=== PATIENT | female | born 1985 | race Asian ===

== ENCOUNTER 2019-10-14 07:48 | Day surgery (SDC) | payer MEDICAID ==
[2019-10-07 10:44] LABS: BASOPHILS % (AUTO) 0.3 % (0-1); EOSINOPHILS # (AUTO) 0.2 X10'3 (0-0.9); EOSINOPHILS % (AUTO) 3.3 % (0-6); LYMPHOCYTES % (AUTO) 30.4 % (21-51); MEAN CORPUSCULAR HEMOGLOBIN 29.4 PG (27.0-31.0); MEAN CORPUSCULAR HGB CONC 33.3 g/dL (33.0-36.5); MEAN CORPUSCULAR VOLUME 88.3 FL (78-98); MONOCYTES # (AUTO) 0.3 X10'3 (0-0.9); PRE OP HEMATOCRIT 38.9 % (35.0-45.0); PRE OP PLATELET COUNT 217 X10'3 (140-440); RED CELL DISTRIBUTION WIDTH 13.9 % (11.5-14.5)
[2019-10-07 10:57] LABS: ALBUMIN 3.9 G/DL (3.4-5.0); ALBUMIN/GLOBULIN RATIO 0.9 (1.1-1.5); ALKALINE PHOSPHATASE 77 IU/L (46-116); BLOOD UREA NITROGEN 13 MG/DL (7-18); BUN/CREATININE RATIO 13.5 (6.6-38.0); CALCIUM 9.2 MG/DL (8.5-10.1); CHLORIDE 105 MMOL/L (99-107); CREATININE 0.96 MG/DL (0.40-0.90); PRE OP ALT 46 U/L (30-65); PRE OP ANION GAP 9 (8-16); PRE OP AST 22 U/L (10-37); PRE OP BILIRUB, TOTAL 0.4 MG/DL (0.0-1.0); PRE OP GLUCOSE 96 MG/DL (70-104); PRE OP POTASSIUM 3.9 MMOL/L (3.4-5.1); PRE OP SODIUM 139 MMOL/L (135-145); TOTAL CARBON DIOXIDE 25.3 MMOL/L (24-32); TOTAL PROTEIN 8.3 G/DL (6.4-8.2); eGFR 67 ML/MIN
[2019-10-07 11:18] LABS: PREOP HCG, QL SERUM NEGATIVE (NEGATIVE)
[2019-10-14] VITALS (10 sets, daily range): BP systolic 105–124; BP diastolic 73–83
[~2019-10-14] VITALS: Ht 154.9 cm; Wt 61.2 kg
[~2019-10-14 07:48] MED LIST: NO HOME MEDS PO; famotidine 20mg tablet PO ONE; ringers solution, lacted 1,000 ML IV SCH
[2019-10-14] MEDS ORDERED: BUPIVAcaine/PF 2.5 mg/ml (0.25%) 30ml vial ONE (09:35)
[2019-10-14] MEDS ORDERED: sevoflurane 250ml liquid IH ONE (10:12)
[2019-10-14] MEDS ORDERED: propofol inj 20 ML IV ONE (10:14)
[2019-10-14] MEDS ORDERED: fentaNYL/PF 50MCG/1 ML 2ML syringe ONE (10:14)
[2019-10-14] MEDS ORDERED: midazolam 2 mg/2 ml injection ONE (10:14)
[2019-10-14] MEDS ORDERED: rocuronium 10mg/ml inj IV ONE (10:29)
[2019-10-14] MEDS ORDERED: dexamethasone sod phosphate 4mg/ml inj. ONE (10:29)
[2019-10-14] MEDS ORDERED: ondansetron/PF 4mg/2ml inj ONE (10:29)
[2019-10-14] MEDS ORDERED: ringers solution, lacted 1,000 ML IV SCH (10:36)
[2019-10-14] MEDS ORDERED: morphine 4 MG/ML inj SYRINge IV PRN (10:40)
[2019-10-14] MEDS ORDERED: meperidine/PF 25mg/ml syringe IV PRN ×3 (10:40)
[2019-10-14] MEDS ORDERED: ondansetron/PF 4mg/2ml inj IV PRN (10:40)
[2019-10-14] MEDS ORDERED: morphine 2 MG/ML inj. syringe IV PRN (10:40)
[2019-10-14] MEDS ORDERED: proCHLORperazine 10 MG/2 ml inj IV PRN (10:40)
[2019-10-14] MEDS ORDERED: neostigmine methylsulfate 1 MG/ML 10ml vial ONE (10:41)
[2019-10-14] MEDS ORDERED: glycopyrrolate 0.2mg/ml inj ONE (10:41)
[2019-10-14] MEDS ORDERED: oxyCODONE/APAP 5-325mg tablet PO ONE (11:10)
--- NOTE | 2019-10-14 11:10 | NUR ---
Received from OR via [facility], accompanied by Anesthesiologist DR ROMO and report given by Anesthesiologist. PT DROWSY, DENIES PAIN, ABDOMEN W/3 LAP SITES W/DERMABOND CDI, POWER PAD IN PLACE. Addendum: 10/14/19 at 1140 by Marisol Carrillo RN Amended: Links added.
[2019-10-14] MEDS ORDERED: ketorolac trometh. 30mg/ml inj. IV ONE (11:50)
--- NOTE | 2019-10-14 12:50 | NUR ---
D/C INSTRUCTIONS GIVEN AND GONE OVER W/PT WHO VERBALIZED UNDERSTANDING, PT D/CD TO HOME VIA W/C TO PRIVATE VEHICLE W/O INCIDENT. Addendum: 10/14/19 at 1351 by Marisol Carrillo RN Amended: Links added.
== END 2019-10-14 12:50 | disposition home or self-care (01) ==
LOC: PAS 07:48
PROVIDERS: ATTEND Obstetrics & Gynecology
DX: Z30.2 Encounter for sterilization (principal); Z11.59 Encounter for screening for other viral diseases; Z79.899 Other long term (current) drug therapy; Z83.3 Family history of diabetes mellitus; Z82.3 Family history of stroke
CPT/HCPCS: 36415; 58661; 80053; 82948; 84703; 85025; 86885; 86900; 86901; J1100; J1885; J2250; J2405; J2704; J2710; J3010; J3490; U0003; A4618; A6250; J7120

== ENCOUNTER 2025-01-12 08:11 | Emergency (ER) | payer MEDICAID ==
[~2025-01-12] VITALS: Ht 152.4 cm; Wt 58.2 kg
[~2025-01-12 08:11] MED LIST changes: -famotidine 20mg tablet PO ONE; -ringers solution, lacted 1,000 ML IV SCH
[2025-01-12 08:25] VITALS: TEMP 97.6
--- NOTE | 2025-01-12 09:16 | Physician Documentation ---
History of Present Illness General Chief Complaint: Flu Symptoms Stated Complaint: BODY ACHES FEVER Time Seen by MD: 08:52 OK to notify your PCP?: No Primary Medical Doctor: [facility] Source: patient, RN notes reviewed Mode of Arrival: POV Exam Limitations: no limitations History of Present Illness Initial Comments 39-year-old female presents with complaints of body aches, subjective fever, chills, frontal/bilateral temporal headache, and some left flank pain. Flank pain began approximately 1500 yesterday, but remainder of symptoms began around midnight. She denies any urinary symptoms, cough, or sore throat. She denies treatment prior to arrival. Medication Reconciliation Allergies: Coded Allergies: No Known Allergies (Unverified , 01/12/25) Scheduled Cefpodoxime Proxetil (Vantin), 1 TAB PO Q12H Home Med List (No Home Medications), 1 TAB PO DAILY, (Reported) Past Medical History Past Medical History: No Pertinent History Past Surgical History: appendectomy, hysterectomy Drug Use: none Lives In: Home Review of Systems All Other Systems at this time: Reviewed and Negative ROS body aches as well as other positive symptoms as stated above in the HPI, otherwise all systems are reviewed and negative. Physical Exam Physical Exam Vital Signs: RN Vital Signs have been reviewed: Yes, Temperature: 97.6, Source: Temporal, Heart Rate: 108, Respiratory Rate: 18, BP: 114/75, Pulse Oximetry: 98, Weight: 58.200 Pulse Oximetry Reflects: adequate oxygenation Physical Exam VITALS: Reviewed and as above. GENERAL: Alert, no apparent distress. HEENT: Normocephalic, atraumatic, PERRL, EOMI, dry mucosa RESPIRATORY: Lungs clear, normal breath sounds, no respiratory distress. CHEST: No accessory muscle use, no retractions CV: Regular rate, rhythm, no edema, no murmur, No: JVD GI: Soft, non-tender, bowels sounds present, no rebound, guarding, or rigidity MUSCULOSKELETAL No deformities, no edema SKIN: Warm and dry, no rash NEURO: Oriented x4, No motor or sensory deficit PSYCH: Normal mood and affect, no agitation Progress Results/Orders Reviewed/noted all lab results: Yes Results/Orders Vital Signs 01/12/25 08:25 Temp 97.6 Pulse 108 Resp 18 B/P (MAP) 114/75 Pulse Ox 98 Laboratory Tests Test 01/12/25 09:05 01/12/25 09:22 Influenza Type A Antigen Negative Influenza Type B Antigen Negative SARS-CoV-2 Antigen (Rapid) Negative Urine Specimen Description Cln catch midstream Urine Color Yellow Urine Clarity Clear Urine pH 6.0 Urine Specific [place] <=1.005 Urine Protein Negative Urine Glucose (UA) Negative Urine Ketones Negative Urine Occult Blood Moderate H Urine Nitrite Negative Urine Bilirubin Negative Urine Urobilinogen 0.2 Urine Leukocyte Esterase Negative Urine RBC 3-10 Urine WBC 5-10 H Urine Squamous Epithelial Cells Few Urine Bacteria 4+ Urine Culture Indicated Indicated Volume Urine Centrifuged 10 ml Urine HCG, Qualitative Negative Urine Comment Medical Decision Making Additional information obtaine: old records Departure Time of Disposition: 10:39 Disposition: 01 HOME / SELF CARE / HOMELESS Impression: Primary Impression: UTI (urinary tract infection) Qualified Codes: N39.0 - Urinary tract infection, site not specified; R31.9 - Hematuria, unspecified Condition: Stable Discharge Instructions: Urinary Tract Infection, Adult, [id number] Additional Instructions: Take full course of antibiotics as prescribed until finished. Follow up with your regular doctor. Return to the ER for new or worsening symptoms or other concerns. Prescriptions Cefpodoxime Proxetil (Vantin) 200 Mg Tablet 1 TAB PO Q12H for 5 Days, #10 TAB Prov: JIMENEZ LOPEZ MD 01/12/25 Education Educated: Patient Educated regarding: diagnosis, treatment, need for follow up Signature Scribe Signature: Scribed for Jimenez Lopez MD by Mendez Gastelum . 01/12/25 09:18 JIMENEZ LOPEZ MD Jan 12, 2025 09:16 MENDEZ STAPLETON Jan 12, 2025 09:19
[2025-01-12 09:33] LABS: LEUKOCYTE ESTERASE ,URINE NEGATIVE (Neg); NITRITES, URINE NEGATIVE (Neg); OCCULT BLOOD,URINE MODERATE (Neg)
[2025-01-12 09:34] LABS: URINE HCG NEGATIVE (NEG)
[2025-01-12 09:39] LABS: UA COLLECTION TYPE CLN CATCH MIDSTREAM
[2025-01-12 09:41] LABS: SQUAMOUS EPITHELIAL CELL,UR FEW /LPF (FEW)
[2025-01-12 09:48] LABS: INFLUENZA TYPE A ANTIGEN RAPID NEGATIVE (Negative); INFLUENZA TYPE B ANTIGEN RAPID NEGATIVE (Negative)
[2025-01-12] MEDS ORDERED: CEFP200T13 PO (10:25)
[2025-01-12 10:51] VITALS: BP 114/72; PULSE 96; RESP 18; O2SAT 100
== END 2025-01-12 10:52 | disposition home or self-care (01) ==
LOC: ER 08:12
DX: N39.0 Urinary tract infection, site not specified (principal); R31.9 Hematuria, unspecified; Z90.710 Acquired absence of both cervix and uterus; Z90.49 Acquired absence of other specified parts of digestive tract; Z79.899 Other long term (current) drug therapy; Z20.822 Contact with and (suspected) exposure to COVID-19
CPT/HCPCS: 36415; 81001; 81025; 87077; 87088; 87186; 87804; 87811; 99283